=== PATIENT | male | born 1950 | race Caucasian/White ===

== ENCOUNTER 2016-07-18 15:48 | Emergency (ER) | payer MEDICARE ==
[2016-07-18 15:59] VITALS: BP 128/71; PULSE 64; TEMP 98.3; O2SAT 100
--- NOTE | 2016-07-18 16:16 | C.PDOC ---
History Of Present Illness 66 y/o male presents to the ED with complains of left knee pain. Pt accidentally fell off ladder yesterday twisting left knee, now has pain to front medial aspect. Pt took diclofenac with limited relief. Pt denies any other injury or complaints. Time Seen by Provider: 07/18/16 16:08 Chief Complaint (Nursing): Lower Extremity Problem/Injury History Per: Patient History/Exam Limitations: no limitations Onset/Duration Of Symptoms: Hrs Current Symptoms Are (Timing): Still Present Severity: Moderate Recent travel outside of the [place]: No - Knee Description Of Injury: Twisted Past Medical History Reviewed: Historical Data, Nursing Documentation, Vital Signs Vital Signs: Last Vital Signs Temp 98.3 F 07/18/16 15:58 Pulse 64 07/18/16 15:58 Resp 17 07/18/16 15:58 BP 128/71 07/18/16 15:58 Pulse Ox 100 07/18/16 16:26 Family History: States: Unknown Family Hx - Social History Hx Alcohol Use: No Hx Substance Use: No Review Of Systems Except As Marked, All Systems Reviewed And Found Negative. Musculoskeletal: Positive for: Other (left knee pain) Physical Exam - Physical Exam Appears: Non-toxic, No Acute Distress Skin: Warm, Dry, No Rash Head: Atraumatic, Normacephalic Extremity: Normal ROM, Other (Pt weight bearing without difficulty. Minimal swelling to left knee, no gross joint laxity. Skin intact) Neurological/Psych: Oriented x3, Normal Motor, Normal Sensation ED Course And Treatment O2 Sat by Pulse Oximetry: 100 (on room air) Pulse Ox Interpretation: Normal - Other Rad l knee X-Ray: Interpreted by Me (NEG) Medical Decision Making Medical Decision Making: Plan: XR left knee, toradol Disposition Counseled Patient/Family Regarding: Studies Performed, Diagnosis, Need For Followup, Rx Given - Disposition Referrals: YOUR,PMD [Other] Disposition: HOME/ ROUTINE Disposition Time: 16:26 Condition: GOOD Prescriptions: Ketorolac Tromethamine [Toradol] 10 mg PO Q6 PRN #10 tab PRN Reason: Pain, Moderate (4-7) Instructions: Knee Sprain (ED) Print Language: LEBANESE - Clinical Impression Clinical Impression: Knee sprain - Scribe Statement The provider has reviewed the documentation as recorded by the Jaya Bowers Provider Attestation: All medical record entries made by the Scribe were at my direction and personally dictated by me. I have reviewed the chart and agree that the record accurately reflects my personal performance of the history, physical exam, medical decision making, and the department course for this patient. I have also personally directed, reviewed, and agree with the discharge instructions and disposition.
[2016-07-18 16:46] VITALS: RESP 18
--- NOTE | 2016-07-18 17:29 | RAD ---
PROCEDURE: Left Knee Radiographs. HISTORY: Pain. COMPARISON: None. FINDINGS: BONES: Normal. No fracture. JOINTS: Joint spaces appear relatively preserved JOINT EFFUSION: Small OTHER FINDINGS: None. IMPRESSION: No acute displaced fracture nor dislocation. Small suprapatellar joint effusion.
== END 2016-07-18 16:45 | disposition home or self-care (01) ==
LOC: C.ER 15:48 → MERGE 15:48 → C.ER 16:45
DX: S83.92XA Sprain of unspecified site of left knee, initial encounter (principal); W11.XXXA Fall on and from ladder, initial encounter; Y93.89 Activity, other specified; Y92.9 Unspecified place or not applicable
CPT/HCPCS: 73562; 96372; 99284; J1885

== ENCOUNTER 2016-09-04 10:18 | Emergency (ER) | payer MEDICARE ==
[2016-09-04 10:18] VITALS: BMI 27.6
[2016-09-04 10:23] VITALS: RESP 18
[2016-09-04 11:34] VITALS: BP 151/82; PULSE 58; TEMP 98.7; O2SAT 100
--- NOTE | 2016-09-04 11:38 | C.PDOC ---
History Of Present Illness 66 y/o male hx of chronic left foot pain since 2005 presents to ED stating he ran out of his pain meds, complaining of foot pain. Pt denies recent trauma, walks with a limp. Denies weakness, numbness, fever or any other complaints. Time Seen by Provider: 09/04/16 10:50 Chief Complaint (Nursing): Lower Extremity Problem/Injury History Per: Patient History/Exam Limitations: no limitations Onset/Duration Of Symptoms: Days Current Symptoms Are (Timing): Still Present Severity: Mild Recent travel outside of the [place]: No Past Medical History Reviewed: Historical Data, Nursing Documentation, Vital Signs Vital Signs: Last Vital Signs Temp 98.7 F 09/04/16 11:30 Pulse 58 L 09/04/16 11:30 Resp 18 09/04/16 11:30 BP 151/82 H 09/04/16 11:30 Pulse Ox 100 09/04/16 11:39 - Medical History PMH: HTN Family History: States: Unknown Family Hx - Social History Hx Tobacco Use: No Hx Alcohol Use: Yes Hx Substance Use: No - Immunization History Hx Tetanus Toxoid Vaccination: No Hx Influenza Vaccination: No Hx Pneumococcal Vaccination: No Review Of Systems Except As Marked, All Systems Reviewed And Found Negative. Constitutional: Negative for: Fever Musculoskeletal: Positive for: Foot Pain (left) Neurological: Negative for: Weakness, Numbness Physical Exam - Physical Exam Appears: Non-toxic, No Acute Distress Skin: Warm, Dry, No Rash Head: Atraumatic, Normacephalic Extremity: Normal ROM, Tenderness (diffuse tenderness to left foot, mostly dorsal aspect), Capillary Refill (<2 seconds), No Deformity, No Swelling Pulses: Left Dorsalis Pedis: Normal Neurological/Psych: Oriented x3, Normal Speech, Normal Motor, Normal Sensation ED Course And Treatment O2 Sat by Pulse Oximetry: 100 (room air) Pulse Ox Interpretation: Normal Progress Note: Pt states treated with NSAIDs in the past with relief. Given here and sent home with Rx and instructed to follow up with PMD. Disposition - Disposition Referrals: Ed Smith, [Non-Staff] - Disposition: HOME/ ROUTINE Disposition Time: 11:15 Condition: GOOD Additional Instructions: Thank you for letting us take care of you today. Your provider was Dr. Carlson. You were treated for chronic foot pain. The emergency medical care you received today was directed at your acute symptoms. If you were prescribed any medication, please fill it and take as directed. It may take several days for your symptoms to resolve. Return to the Emergency Department if your symptoms worsen, do not improve, or if you have any other problems. Please contact your doctor or call one of the physicians/clinics you have been referred to that are listed on the Patient Visit Information form that is included in your discharge packet. Bring any paperwork you were given at discharge with you along with any medications you are taking to your follow up visit. Our treatment cannot replace ongoing medical care by a primary care provider (PCP) outside of the emergency department. Thank you for allowing the [facility] team to be part of your care today. Follow up with your doctor in 4-5 days for re-evaluation. Prescriptions: Naproxen [Naprosyn] 500 mg PO Q12 PRN #20 tablet PRN Reason: Pain, Moderate (4-7) Instructions: Arthralgia (ED) - Clinical Impression Clinical Impression: Foot pain - Scribe Statement The provider has reviewed the documentation as recorded by the Jaya Bowers Provider Attestation: All medical record entries made by the Jaya were at my direction and personally dictated by me. I have reviewed the chart and agree that the record accurately reflects my personal performance of the history, physical exam, medical decision making, and the department course for this patient. I have also personally directed, reviewed, and agree with the discharge instructions and disposition.
== END 2016-09-04 11:34 | disposition home or self-care (01) ==
LOC: C.ER 10:18
DX: M79.672 Pain in left foot (principal)
CPT/HCPCS: 96372; 99284; J1885

== ENCOUNTER 2017-08-22 07:31 | Emergency (ER) | payer MEDICARE ==
[2017-08-22 07:31] VITALS: BMI 27.6
[2017-08-22 07:53] VITALS: RESP 18; TEMP 98.7
--- NOTE | 2017-08-22 08:12 | C.PDOC ---
History Of Present Illness [id number] male with Hx of HTN presents to ED with complaints of left wrist and hand pain associated with warmth and mild swelling that began 1 day ago. Denies fever, trauma, or any other physical complaints. Time Seen by Provider: 08/22/17 07:53 Chief Complaint (Nursing): Upper Extremity Problem/Injury History Per: Patient History/Exam Limitations: no limitations Onset/Duration Of Symptoms: Days (1) Current Symptoms Are (Timing): Still Present Quality: "Pain" Exacerbating Factor(s): Nothing Recent travel outside of the [place]: No Past Medical History Reviewed: Historical Data, Nursing Documentation, Vital Signs Vital Signs: Last Vital Signs Temp 98.7 F 08/22/17 07:51 Pulse 61 08/22/17 10:02 Resp 18 08/22/17 10:02 BP 138/82 08/22/17 10:02 Pulse Ox 100 08/23/17 07:31 - Medical History PMH: Arthritis, HTN Family History: States: Unknown Family Hx - Social History Hx Tobacco Use: No Hx Alcohol Use: Yes Hx Substance Use: No - Immunization History Hx Tetanus Toxoid Vaccination: No Hx Influenza Vaccination: No Hx Pneumococcal Vaccination: No Review Of Systems Constitutional: Negative for: Fever, Chills Musculoskeletal: Positive for: Other (Left wrist pain associated with warmth and mild swelling ) Skin: Negative for: Rash, Lesions, Jaundice Neurological: Negative for: Weakness, Numbness Physical Exam - Physical Exam Appears: Non-toxic, No Acute Distress Skin: Other (Mild Erythema, swelling and warmth from left proximal wrist to dorsum of hand associated with acute tenderness) Extremity: Normal ROM (painful from at left wrist, digits not tender with from ) , No Deformity Pulses: Right Radial: Normal, Left Femoral: Normal Neurological/Psych: Oriented x3, Normal Speech, Normal Cognition, Normal Motor, Normal Sensation ED Course And Treatment - Laboratory Results Result Diagrams: 08/22/17 08:27 08/22/17 08:27 O2 Sat by Pulse Oximetry: 100 (RA) Pulse Ox Interpretation: Normal - Other Rad Left Wrist X-Ray X-Ray: Interpreted by Me, Viewed By Me Interpretation: -- No Fracture noted Medical Decision Making Medical Decision Making: Administered Motrin. Ordered blood work and X-Ray of wrist. Impression: -- Cellulitis vs possible gout X-Ray of Left Wrist: -- No Fracture noted Labs: -- Normal white blood count -- uric acid elevated elevated Re-evaluation: -- Pain decreased after Motrin -- Will treat for gout -- Discussed results and plan with patient. Patient understands results and is agreeable with plan. All questions answered. pt also advised glucose elevated, and needs to have it re-checked in clinic. pt given information about gout and dietary recommendations. Disposition Counseled Patient/Family Regarding: Studies Performed, Diagnosis, Need For Followup - Disposition Referrals: at [facility] [Outside] Disposition: HOME/ ROUTINE Disposition Time: 09:52 Condition: IMPROVED Additional Instructions: Por favor, tome ibuprofeno para el dolor segn lo prescrito cada 6 horas. parece ser gota; kamron condicin inflamatoria. Shannon un seguimiento en la clnica m dica french pronto arminda sea posible: le pedimos que controle vanegas nivel de azcar en la iris, se eleva a 130 en la milli de emergencias. Regrese a la milli de emergencias por cualquier sntoma peor. Please take ibuprofen for pain as prescribed every 6 hours. it appears to be gout; an inflammatory condition. Follow up in medical clinic as soon as possible- please have your blood sugar checked, it is elevated at 130 in the ER. Return to ER for any worse symptoms. Prescriptions: Ibuprofen [Motrin] 600 mg PO TID #30 tab Instructions: Lifestyle Changes to Manage Gout, Gout (DC), Uric Acid Blood Test Forms: Gen Discharge Inst Sudanese, [employer] (Sudanese) Print Language: GUAMANIAN - Clinical Impression Clinical Impression: Gout of left wrist - PA / RESIDENTIAL ROOFER / Resident Statement MD/DO has reviewed & agrees with the documentation as recorded. - Scribe Statement The provider has reviewed the documentation as recorded by the Jaya Martinez All medical record entries made by the Saraibkatie were at my direction and personally dictated by me. I have reviewed the chart and agree that the record accurately reflects my personal performance of the history, physical exam, medical decision making, and the department course for this patient. I have also personally directed, reviewed, and agree with the discharge instructions and disposition.
[2017-08-22 08:33] LABS: BASO % 0.5 % (0.0-2.0); EOS # 0.3 K/uL (0.0-0.7); EOS % 3.9 % (0.0-4.0); HEMOGLOBIN 13.8 g/dL (12.0-18.0); LYMPH # 0.9 K/uL (1.0-4.3); LYMPH % 11.6 % (20.0-40.0); MEAN CELL VOLUME 81.1 fL (80.0-94.0); MEAN CORPUSCULAR HEMOGLOBIN 28.5 pg (27.0-31.0); MEAN CORPUSCULAR HGB CONC 35.1 g/dL (33.0-37.0); MEAN PLATELET VOLUME 8.9 fL (7.2-11.7); MONO # 0.9 K/uL (0.0-0.8); MONO % 12.2 % (0.0-10.0); NEUT # 5.6 K/uL (1.8-7.0); NEUT % 71.8 % (50.0-75.0); NRBC % 0.2 % (0.0-2.0); RBC 4.83 Mil/uL (4.40-5.90); RED CELL DISTRIBUTION WIDTH 14.7 % (11.5-14.5); WHITE BLOOD COUNT 7.8 K/uL (4.8-10.8)
[2017-08-22 08:44] LABS: ALB/GLOB RATIO 1.2 (1.0-2.1); ALBUMIN 4.4 g/dL (3.5-5.0); CALCIUM 9.4 mg/dl (8.6-10.4); URIC ACID 9.9 mg/dL (3.5-8.5)
[2017-08-22 10:03] VITALS: BP 138/82; PULSE 61
[2017-08-22 10:21] VITALS: O2SAT 100
--- NOTE | 2017-08-22 12:24 | RAD ---
PROCEDURE: Left Wrist Radiographs. HISTORY: left wrist pain and swelling COMPARISON: None. FINDINGS: BONES: No acute fracture or destructive bony lesion identified. JOINTS: Normal. No dislocation. SOFT TISSUES: Limited dorsal soft tissue edema is questioned. No retained radiodense foreign body or emphysema soft tissue change related. OTHER FINDINGS: None. IMPRESSION: Mild dorsal soft edema is in question. No fracture or destructive bony lesion appreciable. No subluxation or dislocation apparent.
== END 2017-08-22 10:03 | disposition home or self-care (01) ==
LOC: C.ER 07:31
DX: M10.9 Gout, unspecified (principal); I10 Essential (primary) hypertension; M19.90 Unspecified osteoarthritis, unspecified site

== ENCOUNTER 2018-08-08 11:04 | Outpatient (CLI) | payer MEDICARE | END 2018-08-08 11:05 | disposition home or self-care (01) | LOC: C.PAT 11:04 | DX: R94.39 Abnormal result of other cardiovascular function study (principal) ==

== ENCOUNTER 2018-08-10 07:24 | Day surgery (SDC) | payer MEDICARE ==
[2018-07-06 07:41] VITALS: BMI 28.9
[2018-08-10] MEDS ORDERED: Midazolam 2 MG/2 ML VIAL ONE (08:11)
[2018-08-10] MEDS ORDERED: Verapamil 2 ML ONE (08:11)
[2018-08-10] MEDS ORDERED: Iodixanol 320 MG/ML 100 ML BOTTLE IV ONE (08:12)
[2018-08-10] MEDS ORDERED: Nitroglycerin 50mg in D5W 50 MG/250 ML BOTTLE IV ONE (08:12)
[2018-08-10] MEDS ORDERED: Lidocaine 2% MPF (5 ml) Inj ONE (09:20)
[2018-08-10] MEDS ORDERED: Sodium Chloride 0.9% 1,000 ML IV SCH (10:30)
--- NOTE | 2018-08-11 10:08 | CARDCATH ---
PROCEDURE DATE: 08/10/2018 INDICATIONS: The patient is a 68-year-old male with past medical history significant for hypertension, diabetes, and hyperlipidemia, who was referred by Dr. Lavon Ortiz for evaluation of abnormal nuclear stress test. The patient was having intermittent episodes of moderate chest pain with exertion. PROCEDURE PERFORMED: Left heart catheterization with selective left and right coronary angiogram via 6-Chinese left distal radial arterial access, left ventriculogram and wrist band for hemostasis. ANGIOGRAPHIC FINDINGS: Left main, large-sized vessel, bifurcates into left anterior descending and left circumflex coronary artery. Left circumflex runs in the AV groove, is a large-sized vessel, proximal and mid segment are free of any obstructive disease. Distal segment has a nonobstructive 40% stenosis, gives off an obtuse marginal branch, which has a proximal 65%-70% stenosis. Obtuse marginal has a [id number] 55% stenosis. Left anterior descending is a large-sized vessel, has a mid segment 100% chronic total occlusion, gives off a medium-sized diagonal branch, which has a proximal 80% stenosis. RCA is a large-sized vessel, free of any obstructive disease, gives off right PDA and PLV branches. Right PDA has a distal 40% stenosis. It is free of any obstructive disease. Left ventricular ejection fraction is normal % with EDP of 18. IMPRESSION: Moderate to severe two-vessel coronary artery disease, normal left ventricular ejection fraction. RECOMMENDATION: The patient is to undergo a staged intervention of the OM1 and OM2 and attempted PCI of LAD next week at [facility]. The patient was given a prescription for Plavix. Continue the patient on guideline-directed therapy for CAD. The patient is to follow with Dr. Lavon Ortiz. Thank you Dr. Ortiz for letting me participate in the care of your patient. Cirilo Garcia MD cc: Lavon Ortiz MD
== END 2018-08-10 14:30 | disposition home or self-care (01) ==
LOC: C.CATHLAB 07:24
PROVIDERS: ATTEND Internal Medicine Interventional Cardiology
DX: I25.10 Atherosclerotic heart disease of native coronary artery without angina pectoris (principal); R94.39 Abnormal result of other cardiovascular function study; I10 Essential (primary) hypertension; E11.9 Type 2 diabetes mellitus without complications; E78.5 Hyperlipidemia, unspecified
CPT/HCPCS: 93458; 94770; 96360; 99152; C1760; C1769; C1887; J1644; J2001; J2250; J3010; J7030; Q9967